=== PATIENT | female | born 1960 | race Caucasian/White ===

== ENCOUNTER 2018-02-14 14:18 | Day surgery (SDC) | payer OTHER ==
[2018-02-14] MEDS ORDERED: Xylocaine 1% Vial 30 ML PF IJ ONE (14:19)
[2018-02-14] MEDS ORDERED: Marcaine 0.5% SDV 10 ML IJ ONE (14:19)
[2018-02-14] MEDS ORDERED: Depo-Medrol 40 MG/ML IM ONE (14:19)
--- NOTE | 2018-02-15 08:44 | XRAY ---
Indication: Bilateral SI joint injection. Intraoperative fluoroscopy was provided for 23 seconds. 4 digital spot images submitted for interpretation demonstrates a posterior spinal needle tip projecting over the mid to inferior SI joint bilaterally. Correlate with intraoperative findings/report.
--- NOTE | 2018-02-15 14:43 | XRAY ---
23 seconds fluoroscopy time in surgery for bilateral SI joint injections.
== END 2018-02-14 16:10 | disposition home or self-care (01) ==
LOC: SDC-PAIN 14:18
PROVIDERS: ATTEND Psychiatry & Neurology Pain Medicine
DX: M53.3 Sacrococcygeal disorders, not elsewhere classified (principal)
CPT/HCPCS: 27096; 72020; 77002; J1030; J2001; G0260

== ENCOUNTER 2018-10-24 13:12 | Day surgery (SDC) | payer BC ==
[2018-10-24] MEDS ORDERED: Xylocaine 1% Vial 30 ML PF IJ ONE (13:13)
[2018-10-24] MEDS ORDERED: Marcaine 0.5% SDV 10 ML IJ ONE (13:13)
[2018-10-24] MEDS ORDERED: Depo-Medrol 40 MG/ML IM ONE (13:13)
--- NOTE | 2018-10-24 16:08 | XRAY ---
Indication: Bilateral SI joint injection. Intraoperative fluoroscopy was provided for 12 seconds. 4 digital spot images submitted for interpretation demonstrates posterior needle tip projecting over the inferior left and right SI joints. Correlate with intraoperative findings/report.
--- NOTE | 2018-10-24 16:10 | XRAY ---
12 seconds fluoroscopy time in surgery for bilateral SI joint injections.
== END 2018-10-24 14:52 | disposition home or self-care (01) ==
LOC: SDC-PAIN 13:12
PROVIDERS: ATTEND Psychiatry & Neurology Pain Medicine
DX: M46.1 Sacroiliitis, not elsewhere classified (principal); K21.9 Gastro-esophageal reflux disease without esophagitis; Z79.899 Other long term (current) drug therapy
CPT/HCPCS: 27096; 72202; 77002; J1030; J2001; G0260

== ENCOUNTER 2019-10-02 13:49 | Day surgery (SDC) | payer BC ==
[2019-10-02] MEDS ORDERED: Depo-Medrol 40 MG/ML IM ONE (13:50)
[2019-10-02] MEDS ORDERED: Sodium Chloride 0.9(Preservative Free) 10 ML IJ ONE (13:50)
[2019-10-02] MEDS ORDERED: Xylocaine 1% Vial 30 ML PF IJ ONE (13:50)
--- NOTE | 2019-10-02 16:12 | XRAY ---
Indication: Right L3-L5 transforaminal JOSE MARTIN. Intraoperative fluoroscopy was provided for 25 seconds. 4 digital spot images submitted for interpretation demonstrates posterior needle tips projecting over the expected course of the right L3 and L4 nerve roots. Small amount of contrast injected for needle tip placement. Correlate with intraoperative findings/report.
--- NOTE | 2019-10-02 16:15 | XRAY ---
25 seconds fluoroscopy time in surgery for right L3-L5 transforaminal JOSE MARTIN.
== END 2019-10-02 15:33 | disposition home or self-care (01) ==
LOC: SDC-PAIN 13:49
PROVIDERS: ATTEND Psychiatry & Neurology Pain Medicine
DX: M54.16 Radiculopathy, lumbar region (principal); K21.9 Gastro-esophageal reflux disease without esophagitis; Z79.899 Other long term (current) drug therapy
CPT/HCPCS: 64483; 64484; 72100; 77003; J1030; J2001; Q9966

== ENCOUNTER 2020-12-09 17:03 | Day surgery (SDC) | payer BC ==
[2020-12-09] MEDS ORDERED: Xylocaine 1% Vial 30 ML PF IJ ONE (17:04)
[2020-12-09] MEDS ORDERED: Sodium Chloride 0.9(Preservative Free) 10 ML IJ ONE (17:04)
[2020-12-09] MEDS ORDERED: Depo-Medrol 40 MG/ML IM ONE (17:04)
--- NOTE | 2020-12-10 11:21 | XRAY ---
42 seconds fluoroscopy time in surgery for right L3-S1 transforaminal JOSE MARTIN.
--- NOTE | 2020-12-12 23:29 | XRAY ---
Indication: Right L3-L4, L4-L5 transforaminal JOSE MARTIN. Intraoperative fluoroscopy was provided for 42 seconds. 3 digital spot images submitted for interpretation demonstrate posterior needle tips projected over the expected course of the right L3 and L4 nerve roots. A small amount of contrast has been injected for needle tip placement. Correlate with intraoperative findings/report.
== END 2020-12-09 18:15 | disposition home or self-care (01) ==
LOC: SDC-PAIN 17:03
PROVIDERS: ATTEND Psychiatry & Neurology Pain Medicine
DX: M54.16 Radiculopathy, lumbar region (principal); Z79.899 Other long term (current) drug therapy
CPT/HCPCS: 64483; 64484; 72100; 77003; J1030; J2001; Q9966

== ENCOUNTER 2021-01-29 10:16 | Day surgery (SDC) | payer BC ==
[2021-01-29] MEDS ORDERED: LIDOCAINE HCL 2% 100 MG/5 ML IJ ONE (10:17)
[2021-01-29] MEDS ORDERED: Lactated Ringers 1,000 ML IV ONE (11:54)
--- NOTE | 2021-01-29 12:18 | XRAY ---
Indication: Bilateral L4-S1 MBB. Intraoperative fluoroscopy provided for 6 seconds. Single digital spot image submitted for interpretation demonstrates posterior needle tips projecting over the expected left and right L4-S1 nerve roots. Correlate with intraoperative findings/report.
--- NOTE | 2021-01-29 12:23 | XRAY ---
6 seconds fluoroscopy time in surgery for bilateral L4-S1 MBB.
== END 2021-01-29 11:37 | disposition home or self-care (01) ==
LOC: SDC-PAIN 10:16
PROVIDERS: ATTEND Psychiatry & Neurology Pain Medicine
DX: M47.816 Spondylosis without myelopathy or radiculopathy, lumbar region (principal); F41.9 Anxiety disorder, unspecified; F32.9 Major depressive disorder, single episode, unspecified; K21.9 Gastro-esophageal reflux disease without esophagitis; Z79.899 Other long term (current) drug therapy
CPT/HCPCS: 64493; 64494; 72020; 77002

== ENCOUNTER 2021-03-03 10:14 | Day surgery (SDC) | payer BC ==
[2021-03-03] MEDS ORDERED: BUPIVACAINE 0.5% VIAL IJ ONE (10:15)
[2021-03-03] MEDS ORDERED: Lactated Ringers 1,000 ML IV ONE (13:31)
[2021-03-03] MEDS ORDERED: DIPRIVAN 200 MG/20 ML IV ONE (13:48)
--- NOTE | 2021-03-03 14:54 | XRAY ---
Indication: Bilateral L4-S1 MBB. Intraoperative fluoroscopy provided for 18 seconds. Single digital spot image submitted for interpretation demonstrates posterior needle tips projecting over the expected left and right L4-S1 nerve roots. Correlate with intraoperative findings/report.
--- NOTE | 2021-03-03 17:02 | XRAY ---
18 seconds fluoroscopy time in surgery for bilateral L4-S1 MBB.
== END 2021-03-03 13:36 | disposition home or self-care (01) ==
LOC: SDC-PAIN 10:14
PROVIDERS: ATTEND Psychiatry & Neurology Pain Medicine
DX: M47.816 Spondylosis without myelopathy or radiculopathy, lumbar region (principal)
CPT/HCPCS: 64493; 64494; 72020; 77002; J2704

== ENCOUNTER 2021-03-31 10:51 | Day surgery (SDC) | payer BC ==
[2021-03-31] MEDS ORDERED: Xylocaine 1% Vial 30 ML PF IJ ONE (10:52)
[2021-03-31] MEDS ORDERED: Depo-Medrol 40 MG/ML IM ONE (10:52)
[2021-03-31] MEDS ORDERED: BUPIVACAINE 0.5% VIAL IJ ONE (10:52)
--- NOTE | 2021-03-31 15:44 | XRAY ---
38 seconds of fluoroscopy was used in surgery for a left L4-S1 RFA.
--- NOTE | 2021-03-31 16:28 | XRAY ---
Indication: Left L4-S1 RFA. Intraoperative fluoroscopy provided for 38 seconds. 3 digital spot image submitted for interpretation demonstrates posterior needle tips projecting over the expected left L4-S1 nerve roots. Correlate with intraoperative findings/report.
== END 2021-03-31 13:50 | disposition home or self-care (01) ==
LOC: SDC-PAIN 10:51
PROVIDERS: ATTEND Psychiatry & Neurology Pain Medicine
DX: M47.816 Spondylosis without myelopathy or radiculopathy, lumbar region (principal); Z79.899 Other long term (current) drug therapy
CPT/HCPCS: 64635; 64636; 72100; 77002; J1030; J2001

== ENCOUNTER 2021-04-07 11:20 | Day surgery (SDC) | payer BC ==
[2021-04-07] MEDS ORDERED: Xylocaine 1% Vial 30 ML PF IJ ONE (11:21)
[2021-04-07] MEDS ORDERED: Depo-Medrol 40 MG/ML IM ONE (11:21)
[2021-04-07] MEDS ORDERED: BUPIVACAINE 0.5% VIAL IJ ONE (11:21)
[2021-04-07] MEDS ORDERED: Lactated Ringers 1,000 ML IV ONE (14:51)
--- NOTE | 2021-04-07 16:42 | XRAY ---
Indication: Right L4-S1 RFA. Intraoperative fluoroscopy provided for 31 seconds. 4 digital spot image submitted for interpretation demonstrates posterior needle tips projecting over the expected right L4-S1 nerve roots. Correlate with intraoperative findings/report.
--- NOTE | 2021-04-07 16:47 | XRAY ---
31 seconds of fluoroscopy was used in surgery for a right L4-S1 RFA.
== END 2021-04-07 14:52 | disposition home or self-care (01) ==
LOC: SDC-PAIN 11:20
PROVIDERS: ATTEND Psychiatry & Neurology Pain Medicine
DX: M47.816 Spondylosis without myelopathy or radiculopathy, lumbar region (principal); Z79.899 Other long term (current) drug therapy
CPT/HCPCS: 64635; 64636; 72100; 77002; J1030; J2001

== ENCOUNTER 2022-09-28 13:54 | Day surgery (SDC) | payer BC ==
[2022-09-28] MEDS ORDERED: LIDOCAINE HCL 1% 50 MG/5 ML VL PF IJ ONE (13:55)
[2022-09-28] MEDS ORDERED: Depo-Medrol 40 MG/ML IM ONE (13:55)
[2022-09-28] MEDS ORDERED: BUPIVACAINE 0.5% VIAL IJ ONE (13:55)
[2022-09-28] MEDS ORDERED: Lactated Ringers 1,000 ML IV ONE (15:55)
--- NOTE | 2022-09-28 18:35 | XRAY ---
Indication: Left L4-S1 RFA. Intraoperative fluoroscopy provided for 32 seconds. 3 digital spot image submitted for interpretation demonstrates posterior needle tips projecting over the expected left L4-S1 nerve roots. Correlate with intraoperative findings/report.
--- NOTE | 2022-09-28 18:57 | XRAY ---
32 seconds of fluoroscopy was used in surgery for a left L4-S1 RFA.
== END 2022-09-28 16:37 | disposition home or self-care (01) ==
LOC: SDC-PAIN 13:54
PROVIDERS: ATTEND Psychiatry & Neurology Pain Medicine
DX: M47.816 Spondylosis without myelopathy or radiculopathy, lumbar region (principal); Z79.899 Other long term (current) drug therapy
CPT/HCPCS: 64635; 64636; 72100; 77002; J1030; J2001

== ENCOUNTER 2022-10-05 16:05 | Day surgery (SDC) | payer BC ==
[2022-10-05] MEDS ORDERED: Depo-Medrol 40 MG/ML IM ONE (16:06)
[2022-10-05] MEDS ORDERED: BUPIVACAINE 0.5% VIAL IJ ONE (16:06)
[2022-10-05] MEDS ORDERED: LIDOCAINE HCL 1% 50 MG/5 ML VL PF IJ ONE (16:06)
[2022-10-05] MEDS ORDERED: Lactated Ringers 1,000 ML IV ONE (17:11)
--- NOTE | 2022-10-05 20:13 | XRAY ---
Indication: Right L4-S1 RFA. Intraoperative fluoroscopy provided for 32 seconds. 6 digital spot images submitted for interpretation demonstrates posterior needle tips projecting over the expected right L4-S1 nerve roots. Correlate with intraoperative findings/report.
--- NOTE | 2022-10-06 12:16 | XRAY ---
32 seconds of fluoroscopy was used in surgery for a right L4-S1 RFA.
== END 2022-10-05 17:42 | disposition home or self-care (01) ==
LOC: SDC-PAIN 16:05
PROVIDERS: ATTEND Psychiatry & Neurology Pain Medicine
DX: M47.816 Spondylosis without myelopathy or radiculopathy, lumbar region (principal); Z79.899 Other long term (current) drug therapy
CPT/HCPCS: 64635; 64636; 72100; 77002; J1030; J2001

== ENCOUNTER 2023-10-11 15:26 | Day surgery (SDC) | payer BC ==
[2023-10-11] MEDS ORDERED: Sodium Chloride 0.9(Preservative Free) 10 ML IJ ONE (15:27)
[2023-10-11] MEDS ORDERED: LIDOCAINE HCL 1% 50 MG/5 ML VL PF IJ ONE (15:27)
[2023-10-11] MEDS ORDERED: Decadron 4 MG INJ IV ONE (15:27)
[2023-10-11] MEDS ORDERED: Lactated Ringers 1,000 ML IV ONE (17:02)
--- NOTE | 2023-10-11 18:12 | XRAY ---
Indication: Right L3-L5 transforaminal JOSE MARTIN. Intraoperative fluoroscopy provided for 28 seconds. 6 digital spot images submitted for interpretation demonstrates posterior needle tips projecting over the expected right L3 and L4 nerve roots. Small amount of contrast injected for needle tip placement. Correlate with intraoperative findings/report.
--- NOTE | 2023-10-12 13:12 | XRAY ---
28 seconds of fluoroscopy was used in surgery for a right L3-L5 transforaminal JOSE MARTIN.
== END 2023-10-11 17:20 | disposition home or self-care (01) ==
LOC: SDC-PAIN 15:26
PROVIDERS: ATTEND Psychiatry & Neurology Pain Medicine
DX: M54.16 Radiculopathy, lumbar region (principal)
CPT/HCPCS: 64483; 64484; 72100; 77003; J1100; J2001; Q9966